=== PATIENT | female | born 1995 | race Caucasian/White ===

== ENCOUNTER 2019-10-09 00:27 | Emergency (ER) | payer SELFPAY ==
[~2019-10-09] VITALS: Ht 162.6 cm; Wt 45.6 kg
[~2019-10-09 00:27] MED LIST: HYDR1CAP2 PO; HYDR1TAB PO
[2019-10-09] MEDS ORDERED: LACTATED RINGERS 1,000 ML IV ONE (00:40)
[2019-10-09] MEDS ORDERED: FAMOTIDINE 20MG/2ML IV (PEPCID) IVP ONE (00:45)
[2019-10-09] MEDS ORDERED: HYOSCYAMINE 0.125 MG (LEVSIN) TAB PO ONE (00:45)
[2019-10-09] MEDS ORDERED: ONDANSETRON 4 MG/2 ML (SDV) Z0FRAN IVP ONE (00:45)
--- NOTE | 2019-10-09 00:47 | ED Abdominal Pain ---
General Chief Complaint: Abdominal/GI Problems Stated Complaint: VOMITING Source of Information: Patient, Family (mom) Exam Limitations: No Limitations History of Present Illness Date Seen by Provider: Oct 09, 2019 Time Seen by Provider: 00:32 Initial Comments Patient presents to ER by private conveyance with chief complaint that today she started expressing nausea vomiting and diarrhea. She took Zofran about an hour prior to arrival with no benefit. She took some Phenergan and is still having some nausea with vomiting. She's not having any blood in her stools. She has a history of chronic constipation alternating with diarrhea and is on Linzess from Dr. Padgett. 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 She's not having any chest pain today. She is having some sharp intermittent abdominal pain when she vomits but it goes away and she is not having any discomfort at the time. She's had no abdominal surgeries. She's not on control. She has not taken any antidiarrheals. Allergies and Home Medications Allergies Coded Allergies: No Known Drug Allergies (Unverified , 08/15/11) Home Medications Hydrocodone Bit/Acetaminophen 1 Each Tablet, 1-2 EACH PO Q4HR PRN Prescribed by: SURI GRIFFITH on 08/15/112006 Patient Home Medication List Home Medication List Reviewed: Yes Review of Systems Review of Systems Constitutional: No chills, No diaphoresis EENTM: No Blurred Vision, No Double Vision Respiratory: Denies Cough, Denies Shortness of Air Cardiovascular: Denies Chest Pain; Lightheadedness, Syncope (near-) Gastrointestinal: Denies Abdominal Pain; Constipated (chronic), Diarrhea (acute), Nausea, Poor Appetite, Poor Fluid Intake, Vomiting Genitourinary: Denies Burning, Denies Discharge Musculoskeletal: No back pain, No joint pain Skin: No pruritus, No rash Psychiatric/Neurological: Denies Headache, Denies Numbness, Denies Paresthesia All Other Systems Reviewed Negative Unless Noted: Yes Past Zebptjf-Skwriu-Ohfzql Hx Patient Social History Alcohol Use: Denies Use Recreational Drug Use: No Smoking Status: Never a Smoker Recent Foreign Travel: No Contact w/Someone Who Travel: No Immunizations Up To Date Tetanus Booster (TDap): Less than 5yrs PED Vaccines UTD: Yes Seasonal Allergies Seasonal Allergies: No Past Medical History Adenoidectomy, Orthopedic Reproductive Disorders: No Sexually Transmitted Disease: No Family Medical History No Pertinent Family Hx Physical Exam Vital Signs Vital Signs - First Documented 10/09/19 00:40 Temp 36.2 Pulse 100 Resp 16 B/P (MAP) 107/62 (77) Pulse Ox 100 O2 Delivery Room Air Capillary Refill : Height/Weight/BMI Height: 5'4" Weight: 98lbs. oz. 44.363015ew; BMI Method:Stated General Appearance: mild distress, thin HEENT: PERRL/EOMI, TMs normal, pharynx normal Neck: full range of motion, normal inspection Respiratory: lungs clear, normal breath sounds, no respiratory distress, no accessory muscle use Cardiovascular: normal peripheral pulses, regular rate, rhythm, no edema Peripheral Pulses: 2+ Dorsalis Pedis (R), 2+ Left Dors-Pedis (L), 2+ Radial Pulses (R), 2+ Radial Pulses (L) Gastrointestinal: normal bowel sounds, non tender, soft, no organomegaly, other (negative for McBurney's point tenderness, rebound tenderness, Rovsing sign, psoas sign, mesenteric signs or Plascencia's sign.) Extremities: normal range of motion, non-tender, normal capillary refill Neurologic/Psychiatric: alert, normal mood/affect, oriented x 3 Skin: normal color, warm/dry Progress/Results/Core Measures Results/Orders Lab Results Laboratory Tests Test 10/09/19 00:40 10/09/19 00:56 Range/Units Urine Color YELLOW Urine Clarity SLT CLOUDY Urine pH 5.5 5-9 Urine Specific [place] >=1.030 1.016-1.022 Urine Protein NEGATIVE NEGATIVE Urine Glucose (UA) NEGATIVE NEGATIVE Urine Ketones 3+ H NEGATIVE Urine Nitrite NEGATIVE NEGATIVE Urine Bilirubin 1+ H NEGATIVE Urine Urobilinogen 0.2 < = 1.0 MG/DL Urine Leukocyte Esterase NEGATIVE NEGATIVE Urine RBC (Auto) NEGATIVE NEGATIVE Urine RBC NONE /HPF Urine WBC 2-5 /HPF Urine Squamous Epithelial Cells 0-2 /HPF Urine Crystals NONE /LPF Urine Bacteria TRACE /HPF Urine Casts NONE /LPF Urine Mucus MODERATE H /LPF Urine Culture Indicated NO White Blood Count 12.2 H 4.3-11.0 10^3/uL Red Blood Count 4.16 L 4.35-5.85 10^6/uL Hemoglobin 12.3 11.5-16.0 G/DL Hematocrit 38 35-52 % Mean Corpuscular Volume 92 80-99 FL Mean Corpuscular Hemoglobin 30 25-34 PG Mean Corpuscular Hemoglobin Concent 32 32-36 G/DL Red Cell Distribution Width 13.8 10.0-14.5 % Platelet Count 168 130-400 10^3/uL Mean Platelet Volume 11.2 H 7.4-10.4 FL Neutrophils (%) (Auto) 89 H 42-75 % Lymphocytes (%) (Auto) 5 L 12-44 % Monocytes (%) (Auto) 6 0-12 % Eosinophils (%) (Auto) 0 0-10 % Basophils (%) (Auto) 0 0-10 % Neutrophils # (Auto) 10.8 H 1.8-7.8 X 10^3 Lymphocytes # (Auto) 0.6 L 1.0-4.0 X 10^3 Monocytes # (Auto) 0.7 0.0-1.0 X 10^3 Eosinophils # (Auto) 0.0 0.0-0.3 10^3/uL Basophils # (Auto) 0.0 0.0-0.1 10^3/uL Neutrophils % (Manual) 88 % Lymphocytes % (Manual) 5 % Monocytes % (Manual) 4 % Eosinophils % (Manual) 1 % Basophils % (Manual) 0 % Band Neutrophils 2 % Sodium Level 138 135-145 MMOL/L Potassium Level 3.7 3.6-5.0 MMOL/L Chloride Level 104 98-107 MMOL/L Carbon Dioxide Level 20 L 21-32 MMOL/L Anion Gap 14 5-14 MMOL/L Blood Urea Nitrogen 17 7-18 MG/DL Creatinine 0.51 L 0.60-1.30 MG/DL Estimat Glomerular Filtration Rate > 60 BUN/Creatinine Ratio 33 Glucose Level 109 H 70-105 MG/DL Calcium Level 8.7 8.5-10.1 MG/DL Corrected Calcium 8.3 L 8.5-10.1 MG/DL Total Bilirubin 1.3 H 0.1-1.0 MG/DL Aspartate Amino Transf (AST/SGOT) 14 5-34 U/L Alanine Aminotransferase (ALT/SGPT) 10 0-55 U/L Alkaline Phosphatase 63 40-136 U/L C-Reactive Protein 0.03 <0.50 MG/DL Total Protein 7.0 6.4-8.2 GM/DL Albumin 4.5 3.2-4.5 GM/DL Lipase 24 8-78 U/L My Orders Orders - MALICK HENDERSON Ua Culture If Indicated (10/09/19 00:28) Urine Bedside (10/09/19 00:28) Ed Iv/Invasive Line Start (10/09/19 00:40) Lactated Ringers (Lr 1000 Ml Iv Solution (10/09/19 00:40) Ondansetron Injection (Zofran Injectio (10/09/19 00:45) Famotidine Injection (Pepcid Injection) (10/09/19 00:45) Cbc With Automated Diff (10/09/19 00:40) Comprehensive Metabolic Panel (10/09/19 00:40) Crp Fs (10/09/19 00:40) Lipase (10/09/19 00:40) Hyoscyamine Sl Tablet (Levsin Sl Tablet) (10/09/19 00:45) Orthostatic Vital Signs (Adult (10/09/19 00:53) Manual Differential (10/09/19 00:56) Medications Given in ED Current Medications Medications Dose Ordered Sig/Ashok Route Start Time Stop Time Status Last Admin Dose Admin Famotidine 20 mg ONCE ONCE IVP 10/09/19 00:45 10/09/19 00:46 DC 10/09/19 00:59 20 MG Hyoscyamine Sulfate 0.125 mg ONCE ONCE PO 10/09/19 00:45 10/09/19 00:46 DC 10/09/19 00:59 0.125 MG Lactated Ringer's 1,000 ml @ 0 mls/hr Q0M ONCE IV 10/09/19 00:40 10/09/19 00:42 DC 10/09/19 00:59 999 MLS/HR Ondansetron HCl 8 mg ONCE ONCE IVP 10/09/19 00:45 10/09/19 00:46 DC 10/09/19 00:59 8 MG Vital Signs/I&O 10/09/19 10/09/19 00:40 01:00 Temp 36.2 Pulse 100 98 95 102 Resp 16 B/P (MAP) 107/62 (77) 103/57 (72) 95/54 (68) 98/49 (65) Pulse Ox 100 O2 Delivery Room Air Progress Progress Note #1: Time: 00:48 Progress Note We'll try some hyoscyamine, Zofran 8 mg IV, Pepcid and check some basic labs urinalysis and bedside test. We'll give her a liter of LR which would be greater than 20 mL/kg. She does not present with septic vital signs but we will check her for orthostasis. 0050: Orthostatics are unremarkable. Progress Note #2: Time: 01:39 Progress Note Patient's having no abdominal pain nausea vomiting. Her vitals are normal. Her fluids or almost done. She has some mild body aches but no fevers or chills. We have offered NSAIDs or she can take ibuprofen when she gets home and she elected the latter. Given her mildly elevated bilirubin and abdominal pain this could be more than IBS or a virus; it could also represent biliary colic. She does not need any further imaging studies tonight. We'll set her up for an outpatient ultrasound of her gallbladder and follow-up with primary care. We've instructed her to hold her Linzess and we'll give her a few tablets of hyoscyamine to get her through this episode. We have given return precautions and she states understanding of the plan. Departure Impression Primary Impression: Gastroenteritis and colitis, viral Additional Impression: Total bilirubin, elevated Disposition: 01 HOME, SELF-CARE Condition: Improved Departure-Patient Inst. Decision time for Depature: 01:41 Referrals: CLARK PADGETT MD (PCP/Family) Primary Care Physician Patient Instructions: Viral Gastroenteritis, Adult (DC) Add. Discharge Instructions: Your nausea vomiting and diarrhea may be from a virus which will last a few days at the most and resolve on its own. It may also be from irritable bowel syndrome. Lastly a could be from your gallbladder misbehaving. I would advise you to stop taking the Linzess until your diarrhea stops. Follow-up with Dr. Padgett if your symptoms persist for more than 3 days or you're having difficulty keeping fluids down faster than you're losing them. Zofran 4-8 mg every 6 hours as needed for nausea and vomiting. Phenergan 25 mg every 6 hours as needed for nausea and vomiting. Hyoscyamine 0.125 mg tablet under the tongue every 6 hours as needed for watery diarrhea. Push plenty of fluids. Half-strength sports drinks such as Gatorade or Powerade mixed 50-50 with water would be recommended. Stick to a bland diet of foods such as bananas, rice, applesauce and toast until your diarrhea is under better control. Simethicone can be used for bloating or gas pain. This morning during business hours you may call registration/scheduling to set up an ultrasound of the gallbladder. Plan to review the results with your primary care doctor by making an appointment with Dr. Padgett. Return to the ER if you develop fever especially above 102.5, intractable abdom inal pain, nausea or vomiting. All discharge instructions reviewed with patient and/or family. Voiced understanding. Scripts Promethazine HCl (Promethazine Tablet) 25 Mg Tablet 25 MG PO Q6H PRN for NAUSEA/VOMITING, #12 TAB 0 Refills Prov: MALICK HENDERSON 10/09/19 Ondansetron (Ondansetron Odt) 4 Mg Tab.rapdis 4-8 MG PO Q6H PRN for NAUSEA/VOMITING, #20 TAB 0 Refills Prov: MALICK HENDERSON 10/09/19 Hyoscyamine Sulfate (Hyoscyamine Sulfate) 0.125 Mg Tab.subl 0.125 MG SL Q6H PRN for DIARRHEA for 3 Days, #12 TAB 0 Refills Prov: MALICK HENDERSON 10/09/19 Work/School Note: Work Release Form Date Seen in the Emergency Department: Oct 09, 2019 Return to Work: Oct 11, 2019 Restrictions: No Restrictions Copy Copies To 1: CLARK PADGETT MD, TITUS J Oct 09, 2019 00:47
[2019-10-09 00:57] LABS: BILIRUBIN,URINE 1+ (NEGATIVE); CLARITY,URINE SLT CLOUDY; COLOR,URINE YELLOW; GLUCOSE, URINE (UA) NEGATIVE (NEGATIVE); KETONES,URINE 3+ (NEGATIVE); NITRITE,URINE NEGATIVE (NEGATIVE); PH,URINE 5.5 (5-9); PROTEIN,URINE NEGATIVE (NEGATIVE)
[2019-10-09 00:58] LABS: BACTERIA,URINE TRACE /HPF; LEUKOCYTE ESTERASE ,URINE NEGATIVE (NEGATIVE); SQUAMOUS EPITHELIAL CELL,UR 0-2 /HPF
[2019-10-09 01:00] VITALS: BP_SYST 103; BP_SYST 95; BP_SYST 98; BP_DIAS 49; BP_DIAS 54; BP_DIAS 57
[2019-10-09 01:04] LABS: HEMATOCRIT 38 % (35-52); HEMOGLOBIN 12.3 G/DL (11.5-16.0); MEAN CORPUSCULAR HEMOGLOBIN 30 PG (25-34); MEAN CORPUSCULAR HGB CONC 32 G/DL (32-36); MEAN CORPUSCULAR VOLUME 92 FL (80-99); MEAN PLATELET VOLUME 11.2 FL (7.4-10.4); PLATELET COUNT 168 10^3/uL (130-400); RED CELL DISTRIBUTION WIDTH 13.8 % (10.0-14.5); WHITE BLOOD COUNT 12.2 10^3/uL (4.3-11.0)
[2019-10-09 01:05] LABS: BASOPHILS % (AUTO) 0 % (0-10); EOSINOPHILS % (AUTO) 0 % (0-10); LYMPHOCYTES # (AUTO) 0.6 X 10^3 (1.0-4.0); LYMPHOCYTES % (AUTO) 5 % (12-44); MONOCYTES # (AUTO) 0.7 X 10^3 (0.0-1.0); MONOCYTES % (AUTO) 6 % (0-12); NEUTROPHILS # (AUTO) 10.8 X 10^3 (1.8-7.8); NEUTROPHILS % (AUTO) 89 % (42-75)
[2019-10-09 01:16] LABS: BAND NEUTROPHILS 2 %; BASOPHILS % (MANUAL) 0 %; EOSINOPHILS % (MANUAL) 1 %; LYMPHOCYTES % (MANUAL) 5 %; MONOCYTES % (MANUAL) 4 %; NEUTROPHILS % (MANUAL) 88 %
[2019-10-09 01:22] LABS: CHLORIDE 104 MMOL/L (98-107); POTASSIUM 3.7 MMOL/L (3.6-5.0); SODIUM 138 MMOL/L (135-145)
[2019-10-09 01:23] LABS: ALANINE AMINOTRANSFERASE 10 U/L (0-55); ALBUMIN 4.5 GM/DL (3.2-4.5); ALKALINE PHOSPHATASE 63 U/L (40-136); BILIRUBIN,TOTAL 1.3 MG/DL (0.1-1.0); BUN/CREATININE RATIO 33; CALCIUM 8.7 MG/DL (8.5-10.1); CARBON DIOXIDE 20 MMOL/L (21-32); CREATININE SERUM 0.51 MG/DL (0.60-1.30); GFR ESTIMATED > 60; GLUCOSE 109 MG/DL (70-105); LIPASE 24 U/L (8-78)
[2019-10-09] MEDS ORDERED: RX-HYOSCYAMINE 0.125 MG SL (LEVSIN) PPK#6 SL STA (01:38)
[2019-10-09] MEDS ORDERED: RX-ONDANSETRON 4 MG ODT (ZOFRAN) PPK #4 PO STA (01:38)
[2019-10-09] MEDS ORDERED: PROM25TA14 PO (01:44)
[2019-10-09] MEDS ORDERED: ONDA4TAB11 PO (01:44)
[2019-10-09] MEDS ORDERED: HYOS-19 SL (01:44)
[2019-10-09 01:53] VITALS: BP 95/51
== END 2019-10-09 01:53 | disposition home or self-care (01) ==
LOC: EDUNIT# 00:27 → ER FS 00:29
DX: A08.4 Viral intestinal infection, unspecified (principal); R17 Unspecified jaundice
CPT/HCPCS: 36415; 80053; 81000; 83690; 84703; 85007; 85027; 86141

== ENCOUNTER 2020-02-12 08:23 | Outpatient (RCR) | payer SELFPAY ==
[~2020-02-12 08:23] MED LIST changes: +HYOS-19 SL; +ONDA4TAB11 PO; +PROM25TA14 PO
== END 2020-05-09 | disposition home or self-care (01) ==
LOC: PREOP 08:23
PROVIDERS: ATTEND Surgery
DX: Z01.818 Encounter for other preprocedural examination (principal)

== ENCOUNTER 2020-02-29 02:35 | Emergency (ER) | payer SELFPAY ==
[~2020-02-29] VITALS: Ht 162.6 cm; Wt 45.5 kg
[2020-02-29 02:44] VITALS: BP 117/76
--- NOTE | 2020-02-29 02:54 | ED Chest Pain ---
General Chief Complaint: Abdominal/GI Problems Stated Complaint: CHEST PAIN Source: patient Exam Limitations: no limitations History of Present Illness Date Seen by Provider: February 29, 2020 Time Seen by Provider: 02:47 Initial Comments Patient is a 24-year-old female with 4-5 days of discomfort in her chest. She says been constant she has a sensation of feeling like she needs to breathe deeply but sometimes makes her more aware of the discomfort that radiates there is no nausea no vomiting there is no coughing or sore trauma travel leg swelling Timing/Duration: 4-5 days Severity/Quality: mild Location: substernal Radiation: no radiation Activities at Onset: none Prior CP/Workup: no prior chest pain ASA po MANAGER ASSESSMENT: No NTG SL MANAGER ASSESSMENT: No Associated Symptoms: denies symptoms Allergies and Home Medications Allergies Coded Allergies: No Known Drug Allergies (Unverified , 08/15/11) Home Medications Hydrocodone Bit/Acetaminophen 1 Each Tablet, 1-2 EACH PO Q4HR PRN Prescribed by: SURI GRIFFITH on 08/15/112006 Hyoscyamine Sulfate 0.125 Mg Tab.subl, 0.125 MG SL Q6H PRN for DIARRHEA Prescribed by: MALICK HENDERSON on 10/09/19143 Ondansetron 4 Mg Tab.rapdis, 4-8 MG PO Q6H PRN for NAUSEA/VOMITING Prescribed by: MALICK HENDERSON on 10/09/19143 Promethazine HCl 25 Mg Tablet, 25 MG PO Q6H PRN for NAUSEA/VOMITING Prescribed by: MALICK HENDERSON on 10/09/19143 Patient Home Medication List Home Medication List Reviewed: Yes Review of Systems Review of Systems Constitutional: no symptoms reported EENTM: No Symptoms Reported Respiratory: No Symptoms Reported Cardiovascular: See HPI Gastrointestinal: No Symptoms Reported Genitourinary: No Symptoms Reported Musculoskeletal: no symptoms reported Skin: no symptoms reported Psychiatric/Neurological: No Symptoms Reported Past Qlzripa-Oqxgrs-Vogifs Hx Past Med/Social Hx: Reviewed Nursing Past Med/Soc Hx Patient Social History Alcohol Use: Denies Use Recreational Drug Use: No Smoking Status: Never a Smoker 2nd Hand Smoke Exposure: No Recent Foreign Travel: No Contact w/Someone Who Travel: No Recent Hopitalizations: No Physical Abuse: No Sexual Abuse: No Mistreated: No Fear: No Immunizations Up To Date Tetanus Booster (TDap): Less than 5yrs PED Vaccines UTD: Yes Seasonal Allergies Seasonal Allergies: No Past Medical History Surgeries: Yes (DENTAL. "LUMPS OUT OF ARMPIT") Adenoidectomy, Open Heart Surgery, Orthopedic Respiratory: No Cardiac: No Neurological: Yes (SYNCOPE) Reproductive Disorders: No Sexually Transmitted Disease: No Genitourinary: No Gastrointestinal: No Musculoskeletal: No Endocrine: No HEENT: No Cancer: No Psychosocial: No Integumentary: No Blood Disorders: No Family Medical History No Pertinent Family Hx Physical Exam Vital Signs Vital Signs - First Documented 02/29/20 02:44 Temp 36.9 Pulse 72 Resp 18 B/P (MAP) 117/76 (90) Pulse Ox 100 O2 Delivery Room Air Capillary Refill : Height, Weight, BMI Height: 5'4" Weight: 98lbs. oz. 44.418289uh; 17.00 BMI Method:Stated General Appearance: No Apparent Distress, WD/WN, Other (comfortably supine taxing on following the room) HEENT: PERRL/EOMI, TMs Normal Neck: Full Range of Motion, Normal Inspection, Non Tender Respiratory: Chest Non Tender, Lungs Clear, Normal Breath Sounds, No Accessory Muscle Use Cardiovascular: Regular Rate, Rhythm, No Edema, No Gallop Gastrointestinal: Normal Bowel Sounds, No Organomegaly, Non Tender Extremity: Normal Capillary Refill, Normal Inspection, Normal Range of Motion, Non Tender Neurologic/Psychiatric: Alert, Oriented x3, No Motor/Sensory Deficits, Normal Mood/Affect Skin: Normal Color, Warm/Dry Lymphatic: No Adenopathy Progress/Results/Core Measures Results/Orders My Orders Orders - GURDEEP MIGUEL DO Chest 1 View Ap/Pa Only (02/29/20 02:57) Vital Signs/I&O 02/29/20 02:44 Temp 36.9 Pulse 72 Resp 18 B/P (MAP) 117/76 (90) Pulse Ox 100 O2 Delivery Room Air Progress Progress Note : Progress Note This is a 24-year-old with 5 days of chest pain that is atypical a normal physical exam plan will be risk stratification for her perk score is 0 EKG was normal. Differential would include pneumothorax historically the symptoms sound unlikely to be reflux or hiatal hernia anxiety disorder is possible. The plan will be a chest x-ray is a normal physical exam stratifies low normal EKG after 5 days of chest pain than her baseline right bundle branch block which is known discharge home for primary care follow-up Initial ECG Impression Date: February 29, 2020 Initial ECG Impression Time: 02:47 Initial ECG Rate: 60 Initial ECG Rhythm: Normal Sinus Initial ECG Intervals Right bundle branch block Initial ECG Impression: Normal (no acute ST segment abnormality) Departure Impression Primary Impression: Atypical chest pain Disposition: 01 HOME, SELF-CARE Condition: Unchanged Departure-Patient Inst. Referrals: CLARK PADGETT MD (PCP/Family) Primary Care Physician 1-2 days if continues Patient Instructions: Chest Pain That Is Not Caused by the Heart (DC) GURDEEP MIGUEL DO February 29, 2020 02:54
--- NOTE | 2020-02-29 07:19 | Diagnostic Imaging Report ---
INDICATION: Chest pain x2-3 days increasing severity.. TECHNIQUE: Single view chest 3:04 AM. CORRELATION STUDY: 04/07/2015 FINDINGS: The heart size, mediastinal configuration and pulmonary vascularity are within normal limits. The lungs are clear with no consolidating infiltrate. There is no significant effusion or pneumothorax. IMPRESSION: 1. Negative for acute abnormality of the chest. Dictated by: Dictated on workstation # [id number]
== END 2020-02-29 03:16 | disposition home or self-care (01) ==
LOC: EDUNIT# 02:35 → ER FS 02:38
DX: R07.89 Other chest pain (principal)
CPT/HCPCS: 71045; 93005

== ENCOUNTER 2021-10-04 22:36 | Emergency (ER) | payer OTHER ==
--- NOTE | 2021-10-04 22:53 | ED Headache ---
General Chief Complaint: Head/Cervical Problems Stated Complaint: HEADACHE,NAUSEA Nursing Triage Note: Pt complaining of a headache that started yesteday Source: patient Exam Limitations: no limitations History of Present Illness Date Seen by Provider: Oct 04, 2021 Time Seen by Provider: 22:41 Initial Comments 26-year-old female with past medical history of migraines coming in due to what feels like a migraine to her. The pain is in the front of her head, throbbing, constant, and nothing seems to really make it better. This headache started yesterday morning. She says she gets one at least every other day and has for many years. She says she is to go to the ER all the time for this and has had multiple work-ups including multiple images of her head. She is currently on Topamax daily for this and then takes Excedrin Migraine as needed. She last had this around 4 to 6 hours ago. Normally the Excedrin well make her headaches go away, but when they get to this point she typically has to come to the ER. Denies any fever, vision changes, hearing changes, weakness, numbness, chest pain, shortness of breath, nausea, vomiting, diarrhea, dysuria, or any other concerns. She is on control and is currently menstruating. Of note, she says within the past couple days she has been COVID and flu tested and were both negative. Allergies and Home Medications Allergies Coded Allergies: No Known Drug Allergies (Unverified , 08/15/11) Patient Home Medication List Home Medication List Reviewed: Yes Hydrocodone Bit/Acetaminophen (Hydrocet 5-500 Capsule) 1 Each Capsule, 1 EACH PO, (Reported) Entered as Reported by: ZANE DICKEY on 08/15/111938 Hydrocodone Bit/Acetaminophen (Vicodin 5-500 Tablet) 1 Each Tablet, 1-2 EACH PO Q4HR PRN Prescribed by: SURI GRIFFITH on 08/15/112006 Hyoscyamine Sulfate (Hyoscyamine Sulfate) 0.125 Mg Tab.subl, 0.125 MG SL Q6H PRN for DIARRHEA Prescribed by: MALICK HENDERSON on 10/09/19143 Ondansetron (Ondansetron Odt) 4 Mg Tab.rapdis, 4-8 MG PO Q6H PRN for NAUSEA/VOMITING Prescribed by: MALICK HENDERSON on 10/09/19143 Promethazine HCl (Promethazine Tablet) 25 Mg Tablet, 25 MG PO Q6H PRN for NAUSEA/VOMITING Prescribed by: MALICK HENDERSON on 10/09/19143 Review of Systems Review of Systems Constitutional: No chills, No fever Eyes: Denies Blurred Vision, Denies Photophobia Ears, Nose, Mouth, Throat: denies nose discharge Respiratory: No cough, No short of breath Cardiovascular: No chest pain Gastrointestinal: No abdominal pain, No diarrhea, No nausea, No vomiting Genitourinary: no symptoms reported Musculoskeletal: no symptoms reported Skin: no symptoms reported Psychiatric/Neurological: Headache All Other Systems Reviewed Negative Unless Noted: Yes Past Yaefvlg-Ediueh-Uxbdwv Hx Patient Social History Tobacco Use?: No Use of E-Cig and/or Vaping dev: Yes Substance use?: No Alcohol Use?: No Immunizations Up To Date Tetanus Booster (TDap): Less than 5yrs PED Vaccines UTD: Yes Seasonal Allergies Seasonal Allergies: No Past Medical History Surgeries: Yes (DENTAL. "LUMPS OUT OF ARMPIT") Adenoidectomy, Open Heart Surgery, Orthopedic Respiratory: No Cardiac: No Neurological: Yes (SYNCOPE) Reproductive Disorders: No Sexually Transmitted Disease: No Genitourinary: No Gastrointestinal: No Musculoskeletal: No Endocrine: No HEENT: No Cancer: No Psychosocial: No Integumentary: No Blood Disorders: No Family Medical History No Pertinent Family Hx Physical Exam Vital Signs Vital Signs - First Documented 10/04/21 22:39 Temp 36.5 Pulse 70 Resp 16 B/P (MAP) 123/87 (99) Pulse Ox 100 O2 Delivery Room Air Capillary Refill : Less Than 3 Seconds Height, Weight, BMI Height: 5'4" Weight: 98lbs. oz. 44.476885at; 17.00 BMI Method:Stated General Appearance: WD/WN, no apparent distress HEENT: PERRL/EOMI, normal ENT inspection, TMs normal, pharynx normal Neck: non-tender, full range of motion, supple, normal inspection Cardiovascular: regular rate, rhythm, no edema, no murmur Respiratory: chest non-tender, lungs clear, normal breath sounds, no respiratory distress, no accessory muscle use Gastrointestinal: normal bowel sounds, non tender, soft; No distended, No guarding, No rebound Back: normal inspection, no CVA tenderness Extremities: normal range of motion, non-tender, normal inspection, no pedal edema, no calf tenderness, normal capillary refill Psychiatric: alert, oriented x 3 Crainal Nerves: normal hearing, normal speech, PERRL Coordination/Gait: normal gait Motor/Sensory: no motor deficit, no sensory deficit Skin: normal color, warm/dry Lymphatic: no adenopathy Progress/Results/Core Measures Results/Orders My Orders Orders - CARROLL GARCIA MD Diphenhydramine Injection (Benadryl Inje (10/04/21 23:00) Ketorolac Injection (Toradol Injection) (10/04/21 23:00) Prochlorperazine Injection (Compazine In (10/04/21 23:00) Dexamethasone Oral Soln (Ed) (Decadron I (10/04/21 22:46) Vital Signs/I&O 10/04/21 22:39 Temp 36.5 Pulse 70 Resp 16 B/P (MAP) 123/87 (99) Pulse Ox 100 O2 Delivery Room Air Blood Pressure Mean: 99 Progress Progress Note : Progress Note 26-year-old female with above history coming in due to headache. The patient says she gets a headache every other day and has for many years, and this feels like one of her bad ones that she would normally get. She says she has had multiple work-ups in the past and they are always normal. Typically when this happens, she says she just gets a shot in her muscle and she gets better. ABCs were intact, vital stable on presentation, GCS 15. Complete neuro exam is normal. She was given IM Compazine, Benadryl, Toradol. She says in the past she thinks steroids have helped, but that she prefer them oral. So she was given oral Decadron. On reassessment her headache had improved. I believe she is stable for discharge with outpatient follow-up. She was sent home with st rict return precautions. Departure Impression Primary Impression: Headache Qualified Codes: R51.9 - Headache, unspecified; G89.29 - Other chronic pain Disposition: HOME, SELF-CARE Condition: Stable Departure-Patient Inst. Decision time for Depature: 23:30 Referrals: ALE SMITH APRN (PCP/Family) Primary Care Physician Patient Instructions: Headache, Adult (DC) Add. Discharge Instructions: You were seen in the emergency department for your headache. I think at this point if this has been going on for years she should follow-up with a neurologist to see if there is something they can do to help minimize how many headaches you are getting every day. There are new medications coming out constantly, and there are some that can really change how any migraines you have per month. Work/School Note: Work Release Form Date Seen in the Emergency Department: Oct 04, 2021 Return to Work: Oct 06, 2021 Restrictions: No Restrictions CARROLL GARCIA MD Oct 04, 2021 22:53
[2021-10-04] MEDS ORDERED: PROCHLORPERAZINE 10 MG/2ML INJ (COMPAZINE) IM ONE (23:00)
[2021-10-04] MEDS ORDERED: diphenhydrAMINE 50 MG/ML INJ (BENADRYL) IM ONE (23:00)
[2021-10-04] MEDS ORDERED: KETOROLAC 30 MG/ML VIAL IM ONE (23:00)
[2021-10-04] MEDS ORDERED: KETOROLAC 30 MG/ML VIAL IVP ONE (23:00)
[2021-10-04 23:22] VITALS: BP 123/87
== END 2021-10-04 23:23 | disposition home or self-care (01) ==
LOC: EDUNIT# 22:36 → ER FS 22:39
DX: R51.9 Headache, unspecified (principal)
CPT/HCPCS: 99284

== ENCOUNTER 2021-10-07 08:13 | Emergency (ER) | payer OTHER ==
[~2021-10-07] VITALS: Ht 162.6 cm; Wt 45.4 kg
[2021-10-07 08:20] VITALS: BP 108/72
--- NOTE | 2021-10-07 09:28 | ED Cough/URI ---
General Chief Complaint: Fever-Adult/Adol Stated Complaint: BODY ACHES,FEVER,SOAR THROAT Nursing Triage Note: Patient reports she has had a headache, subjective fever, cough, and sore throat for 3 days. States she was tested for COVID and the flu 3 days ago at walk-in care and tested negative for both. She reports her symptoms have continued to worsen so she came to the ED today for evaluation. Source: patient Exam Limitations: no limitations History of Present Illness Date Seen by Provider: Oct 07, 2021 Time Seen by Provider: 08:50 Initial Comments Patient is a 26-year-old female with history of cardiomyopathy and septal wall defect repair who presents with 3 days of sore throat body aches, fever chills sweats, nasal congestion rhinorrhea. No nausea vomiting or abdominal pain. Patient tested negative for Covid and influenza on day 1 of symptoms. She states she has not worsened but not improved. She is able to tolerate fluids and eat small meals. She is not dizzy lightheaded, and denies shortness of breath. She is not hypoxic. Patient is taken vqcy-llg-mtloaib cough medications with limited improvement. No other acute symptoms or complaints. Patient is a non-smoker. Timing/Duration: week Severity/Quality: other Prior Episodes/Possible Cause: other Modifying Factors: Improves With Other Associated Symptoms: other Allergies and Home Medications Allergies Coded Allergies: No Known Drug Allergies (Unverified , 08/15/11) Patient Home Medication List Home Medication List Reviewed: Yes Hydrocodone Bit/Acetaminophen (Hydrocet 5-500 Capsule) 1 Each Capsule, 1 EACH PO, (Reported) Entered as Reported by: ZANE DICKEY on 08/15/111938 Hydrocodone Bit/Acetaminophen (Vicodin 5-500 Tablet) 1 Each Tablet, 1-2 EACH PO Q4HR PRN Prescribed by: SURI GRIFFITH on 08/15/112006 Hyoscyamine Sulfate (Hyoscyamine Sulfate) 0.125 Mg Tab.subl, 0.125 MG SL Q6H PRN for DIARRHEA Prescribed by: MALICK HENDERSON on 10/09/19143 Ondansetron (Ondansetron Odt) 4 Mg Tab.rapdis, 4-8 MG PO Q6H PRN for NAUSEA/VOMITING Prescribed by: MALICK HENDERSON on 10/09/19143 Promethazine HCl (Promethazine Tablet) 25 Mg Tablet, 25 MG PO Q6H PRN for NAUSEA/VOMITING Prescribed by: MALICK HENDERSON on 10/09/19 0144 Review of Systems Review of Systems Constitutional: see HPI EENTM: see HPI Respiratory: see HPI Cardiovascular: see HPI Gastrointestinal: see HPI Genitourinary: see HPI Musculoskeletal: see HPI Skin: see HPI Psychiatric/Neurological: See HPI Hematologic/Lymphatic: See HPI Immunological/Allergic: see HPI All Other Systems Reviewed Negative Unless Noted: Yes Past Txpwiza-[place]ld[place] Hx Patient Social History Tobacco Use?: Yes Use of E-Cig and/or Vaping dev: Yes Substance use?: No Alcohol Use?: No Pt feels they are or have been: No Immunizations Up To Date Tetanus Booster (TDap): Less than 5yrs PED Vaccines UTD: Yes Seasonal Allergies Seasonal Allergies: No Past Medical History Surgery/Hospitalization HX: open heart surgery 2014, migraine headaches Surgeries: Yes (DENTAL. "LUMPS OUT OF ARMPIT") Adenoidectomy, Open Heart Surgery, Orthopedic Respiratory: No Cardiac: No Neurological: Yes (SYNCOPE) Reproductive Disorders: No Sexually Transmitted Disease: No Genitourinary: No Gastrointestinal: No Musculoskeletal: No Endocrine: No HEENT: No Cancer: No Psychosocial: No Integumentary: No Blood Disorders: No Family Medical History No Pertinent Family Hx Physical Exam Vital Signs - First Documented 10/07/21 08:20 Temp 36.4 Pulse 88 Resp 16 B/P (MAP) 108/72 (84) Pulse Ox 97 O2 Delivery Room Air Capillary Refill : Less Than 3 Seconds Height: 5'4" Weight: 98lbs. oz. 44.254166sk; 17.00 BMI Method:Stated General Appearance: WD/WN, no apparent distress Eyes: Bilateral Eye Normal Inspection, Bilateral Eye PERRL, Bilateral Eye EOMI HEENT: PERRL/EOMI, normal ENT inspection, TMs normal, pharynx normal, other (Pharyngeal erythema, minimal swelling) Neck: other (Cervical lymphadenopathy) Respiratory: chest non-tender, lungs clear Cardiovascular: normal peripheral pulses, regular rate, rhythm Gastrointestinal: non tender, soft Neurologic/Psychiatric: alert, oriented x 3 Skin: normal color Focused Exam Sepsis Stage: Ruled Out Time of Focused Exam: 09:30 Progress/Results/Core Measures Suspected Sepsis SIRS Temperature: Pulse: 88 Respiratory Rate: 16 Blood Pressure 108 /72 Mean: 84 Results/Orders Lab Results Laboratory Tests Test 10/07/21 08:35 Range/Units Group A Streptococcus Screen NEGATIVE NEGATIVE My Orders Orders - SAGE PARKER DO Covid 19 Inhouse Test (10/07/21 08:36) Rapid Strep A Screen (10/07/21 08:36) Isolation Central Supply Req (10/07/21 08:36) Influenza A & B Antigens (10/07/21 09:19) Vital Signs/I&O 10/07/21 08:20 Temp 36.4 Pulse 88 Resp 16 B/P (MAP) 108/72 (84) Pulse Ox 97 O2 Delivery Room Air Capillary Refill : Less Than 3 Seconds Blood Pressure Mean: 84 Departure Communication (Admissions) Pharyngitis with concern for possible Covid-like illness. No respiratory compromise Will obtain Covid/strep and influenza tests and treat accordingly. Impression Primary Impression: Pharyngitis Additional Impression: Viral syndrome Disposition: 01 HOME, SELF-CARE Condition: Stable Departure-Patient Inst. Decision time for Depature: 09:31 Referrals: ALE SMITH APRN (PCP/Family) Primary Care Physician Patient Instructions: Viral Pharyngitis (DC) Add. Discharge Instructions: You were evaluated in the emergency department for body aches, nasal congestion, cough, and sore throat. Covid and influenza test were obtained and results are pending. Please continue ibuprofen for body aches and ngrr-vxm-nlglnky decongestants, and continue to self quarantine. Additional treatments may be recommended as test results become known. Follow-up with PCP in 3 to 5 days for reevaluation if symptoms persist. All discharge instructions reviewed with patient and/or family. Voiced understanding. SAGE PARKER DO Oct 07, 2021 09:28
[2021-10-07] MEDS ORDERED: PRD20T PO (17:17)
[2021-10-07] MEDS ORDERED: AZIT250T PO (17:17)
[2021-10-07] MEDS ORDERED: RT-ALBUINH INH (17:17)
[2021-10-12] MEDS ORDERED: BENZ100C18 PO (15:35)
== END 2021-10-07 09:40 | disposition home or self-care (01) ==
LOC: EDUNIT# 08:13 → ER FS 08:15
DX: U07.1 COVID-19 (principal); J02.9 Acute pharyngitis, unspecified; Z72.0 Tobacco use
CPT/HCPCS: 87430; 87636; 87804; 99283

== ENCOUNTER 2021-10-11 20:12 | Emergency (ER) | payer OTHER ==
[~2021-10-11] VITALS: Ht 162 cm; Wt 44.4 kg
[~2021-10-11 20:12] MED LIST changes: +AZIT250T PO; +PRD20T PO; +RT-ALBUINH INH
--- NOTE | 2021-10-11 21:56 | ED General ---
General Chief Complaint: COVID19 Suspect/Confirmed Stated Complaint: FACIAL SWELLING,CONGESTION Nursing Triage Note: Pt is c/o sore throat, congestion and HOUSER starting this am. Pt tested COVID+ on Sunday. Has not taken Tylenol or Motrin. Denies fever, cough, SOA, or CP. Hx of migranes. Source of Information: Patient Exam Limitations: No Limitations History of Present Illness Date Seen by Provider: Oct 11, 2021 Time Seen by Provider: 20:55 Initial Comments This 26-year-old young lady presents to the emergency room with symptoms related to COVID-19 infection. She was diagnosed 5 days ago and was prescribed prednisone and azithromycin. She initially felt better but today her symptoms seem to be worse. She complains of sore throat and discomfort on the right side of her neck and face. She has been feverish and generally feels ill. She also complains of cough that disrupts her sleep. She is concerned that her symptoms have worsened and would like evaluated. Allergies and Home Medications Allergies Coded Allergies: No Known Drug Allergies (Unverified , 08/15/11) Patient Home Medication List Home Medication List Reviewed: Yes Albuterol Sulfate (Proventil Hfa) 6.7 Gm Hfa.aer.ad, 2 PUFF INH Q6H Prescribed by: SAGE PARKER on 10/07/211716 Azithromycin (Zithromax) 250 Mg Tablet, 250 MG PO UD Prescribed by: SAGE PARKER on 10/07/211716 Hydrocodone Bit/Acetaminophen (Hydrocet 5-500 Capsule) 1 Each Capsule, 1 EACH PO, (Reported) Entered as Reported by: ZANE DICKEY on 08/15/111938 Hydrocodone Bit/Acetaminophen (Vicodin 5-500 Tablet) 1 Each Tablet, 1-2 EACH PO Q4HR PRN Prescribed by: SURI GRIFFITH on 08/15/112006 Hyoscyamine Sulfate (Hyoscyamine Sulfate) 0.125 Mg Tab.subl, 0.125 MG SL Q6H PRN for DIARRHEA Prescribed by: MALICK HENDERSON on 10/09/19143 Ondansetron (Ondansetron Odt) 4 Mg Tab.rapdis, 4-8 MG PO Q6H PRN for NAUSEA/VOMITING Prescribed by: MALICK HENDERSON on 10/09/19143 Prednisone (Prednisone) 20 Mg Tab, 40 MG PO DAILY Prescribed by: SAGE PARKER on 10/07/21 1717 Promethazine HCl (Promethazine Tablet) 25 Mg Tablet, 25 MG PO Q6H PRN for NAUSEA/VOMITING Prescribed by: MALICK HENDERSON on 10/09/19 0144 Review of Systems Review of Systems Constitutional: see HPI EENTM: see HPI Respiratory: see HPI Cardiovascular: no symptoms reported Gastrointestinal: no symptoms reported Genitourinary: no symptoms reported Musculoskeletal: muscle pain Skin: no symptoms reported Psychiatric/Neurological: No Symptoms Reported Hematologic/Lymphatic: No Symptoms Reported Immunological/Allergic: no symptoms reported Past Acustxr-Sbvvrq-Jfruin Hx Patient Social History Tobacco Use?: No Use of E-Cig and/or Vaping dev: Yes E-Cig or Vaping type used: Nicotine Use of E-Cig and/or Vaping Fadi: Current Everyday User Substance use?: No Alcohol Use?: No Pt feels they are or have been: No Immunizations Up To Date Tetanus Booster (TDap): Less than 5yrs PED Vaccines UTD: Yes Influenza Vaccine Up-to-Date: No; Not Current First/Initial COVID19 Vaccinat: denies Seasonal Allergies Seasonal Allergies: No Past Medical History Surgery/Hospitalization HX: open heart surgery 2014, migraine headaches Surgeries: Yes (DENTAL. "LUMPS OUT OF ARMPIT") Adenoidectomy, Open Heart Surgery, Orthopedic Respiratory: No Cardiac: No Neurological: Yes (SYNCOPE) Last Menstrual Period: Oct 01, 2021 Reproductive Disorders: No Sexually Transmitted Disease: No Genitourinary: No Gastrointestinal: No Musculoskeletal: No Endocrine: No HEENT: No Cancer: No Psychosocial: No Integumentary: No Blood Disorders: No Family Medical History No Pertinent Family Hx Physical Exam Vital Signs Vital Signs - First Documented 10/11/21 20:15 Temp 37.6 Pulse 97 Resp 15 B/P (MAP) 107/79 (88) Pulse Ox 97 O2 Delivery Room Air Capillary Refill : Less Than 3 Seconds Height, Weight, BMI Height: 5'4" Weight: 98lbs. oz. 44.083804kx; 16.00 BMI Method:Stated General Appearance: No Apparent Distress, Mild Distress HEENT: PERRL/EOMI, TMs Normal, Normal ENT Inspection, Pharynx Normal, Other (Mild tenderness over the sinuses) Neck: Normal Inspection Respiratory: Lungs Clear, Normal Breath Sounds, No Accessory Muscle Use, No Respiratory Distress Cardiovascular: Regular Rate, Rhythm, No Edema, No Murmur, Normal Peripheral Pulses Gastrointestinal: Normal Bowel Sounds, Non Tender, Soft Extremity: Normal Inspection, No Pedal Edema Neurologic/Psychiatric: Alert, Oriented x3, No Motor/Sensory Deficits, Normal Mood/Affect, magisterial district judge II-XII Norm as Tested Skin: Normal Color, Warm/Dry Progress/Results/Core Measures Suspected Sepsis SIRS Temperature: Pulse: 97 Respiratory Rate: 15 Blood Pressure 107 /79 Mean: 88 Results/Orders Lab Results Laboratory Tests Test 10/11/21 21:00 Range/Units Group A Streptococcus Screen NEGATIVE NEGATIVE My Orders Orders - CHEPE HENDERSON MD Rapid Strep A Screen (10/11/21 21:04) Benzonatate Capsule (Tessalon Perles) (10/11/21 22:00) Medications Given in ED Current Medications Medications Dose Ordered Sig/Ashok Route Start Time Stop Time Status Last Admin Dose Admin Benzonatate 200 mg ONCE ONCE PO 10/11/21 22:00 10/11/21 22:01 DC 10/11/21 22:01 200 MG Vital Signs/I&O 10/11/21 10/11/21 20:15 22:02 Temp 37.6 37.6 Pulse 97 97 Resp 15 15 B/P (MAP) 107/79 (88) 107/79 Pulse Ox 97 97 O2 Delivery Room Air Room Air Capillary Refill : Less Than 3 Seconds Blood Pressure Mean: 88 Progress Note : Progress Note Exam was unremarkable except for mild tenderness over the sinuses. She was advised to take Tylenol and/or ibuprofen for her discomfort. Symptoms are consistent with COVID 19. Her symptoms were likely masked by the steroids which she discontinued yesterday. See discharge instructions for further discussion. Departure Impression Primary Impression: COVID-19 Additional Impression: Pharyngitis Qualified Codes: J02.9 - Acute pharyngitis, unspecified Disposition: HOME, SELF-CARE Condition: Improved Departure-Patient Inst. Decision time for Depature: 21:53 Referrals: ALE SMITH APRN (PCP/Family) Primary Care Physician Patient Instructions: COVID-19 ED Add. Discharge Instructions: You may take ibuprofen up to 400 mg every 6 hours and/or Tylenol (acetaminophen) up to 650 mg every 6 hours as needed for pain. Drink plenty of clear liquids. Remain in quarantine and home from work until 10 days from onset of symptoms since you are having prolonged significant symptoms. Call with questions or concerns. Return to care if you have worsening symptoms All discharge instructions reviewed with patient and/or family. Voiced understanding. Work/School Note: Work Release Form Date Seen in the Emergency Department: Oct 11, 2021 Return to Work: Oct 17, 2021 Restrictions: Return-No Fever (24hrs) CHEPE HENDERSON MD Oct 11, 2021 21:56
[2021-10-11] MEDS ORDERED: BENZONATATE 100 MG (TESSALON) CAPSULE PO ONE (22:00)
[2021-10-11 22:02] VITALS: BP 107/79
[2021-10-12] MEDS ORDERED: BENZ100C18 PO (15:35)
== END 2021-10-11 22:02 | disposition home or self-care (01) ==
LOC: EDUNIT# 20:12 → ER FS 20:14
DX: U07.1 COVID-19 (principal); J02.9 Acute pharyngitis, unspecified; F17.290 Nicotine dependence, other tobacco product, uncomplicated
CPT/HCPCS: 87430; 99283

== ENCOUNTER 2022-04-06 01:55 | Emergency (ER) | payer SELFPAY ==
[~2022-04-06] VITALS: Ht 162.5 cm; Wt 54.8 kg
[~2022-04-06 01:55] MED LIST changes: +BENZ100C18 PO
[2022-04-06 02:01] VITALS: BP 102/69
--- NOTE | 2022-04-06 02:13 | ED Headache ---
General Chief Complaint: Head/Cervical Problems Stated Complaint: MIGRAINE, NAUSEA Nursing Triage Note: Patient states her migraine started yesterday. She has taken Excedrin Migraine with no relief. Patient has a history of migraines. Patient is also reporting slight nausea. Source: patient Exam Limitations: no limitations History of Present Illness Date Seen by Provider: Apr 06, 2022 Time Seen by Provider: 02:00 Initial Comments 26-year-old female known to me coming in due to migraine. She has had migraines for years since had significant work-ups which have all been normal. She has follow-up with a neurologist here in the next 5 months. She takes Topamax daily as well as Excedrin Migraine which she took. This was been going on for roughly 12 hours. It feels similar to her prior migraines. Severe, in front of her head, throbbing, nothing seems to make it better. She denies any fever associated with it, weakness, numbness, vision changes, neck stiffness, chest pain, shortness of breath, abdominal pain, vomiting, diarrhea, body aches, rash, or any other concerns. LMP was last week. Allergies and Home Medications Allergies Coded Allergies: No Known Drug Allergies (Unverified , 08/15/11) Patient Home Medication List Home Medication List Reviewed: Yes Albuterol Sulfate (Proventil Hfa) 6.7 Gm Hfa.aer.ad, 2 PUFF INH Q6H Prescribed by: SAGE PARKER on 10/07/211716 Azithromycin (Zithromax) 250 Mg Tablet, 250 MG PO UD Prescribed by: SAGE PARKER on 10/07/211716 Benzonatate (Tessalon Perles) 100 Mg Capsule, 100 MG PO TID PRN for COUGH Prescribed by: CHLOE PALMER on 10/12/21 153 Hydrocodone Bit/Acetaminophen (Hydrocet 5-500 Capsule) 1 Each Capsule, 1 EACH PO, (Reported) Entered as Reported by: ZANE DICKEY on 08/15/11 193 Hydrocodone Bit/Acetaminophen (Vicodin 5-500 Tablet) 1 Each Tablet, 1-2 EACH PO Q4HR PRN Prescribed by: SURI GRIFFITH on 08/15/112006 Hyoscyamine Sulfate (Hyoscyamine Sulfate) 0.125 Mg Tab.subl, 0.125 MG SL Q6H PRN for DIARRHEA Prescribed by: MALICK HENDERSON on 10/09/19 014 Ondansetron (Ondansetron Odt) 4 Mg Tab.rapdis, 4-8 MG PO Q6H PRN for NAUSEA/VOMITING Prescribed by: MALICK HENDERSON on 10/09/19 014 Prednisone (Prednisone) 20 Mg Tab, 40 MG PO DAILY Prescribed by: SAGE PARKER on 10/07/21 1717 Promethazine HCl (Promethazine Tablet) 25 Mg Tablet, 25 MG PO Q6H PRN for NAUSEA/VOMITING Prescribed by: MALICK HENDERSON on 10/09/19143 Review of Systems Review of Systems Constitutional: No fever Eyes: Denies Blurred Vision Ears, Nose, Mouth, Throat: no symptoms reported Respiratory: no symptoms reported Cardiovascular: no symptoms reported Gastrointestinal: no symptoms reported Genitourinary: no symptoms reported Musculoskeletal: no symptoms reported Skin: no symptoms reported Psychiatric/Neurological: Headache All Other Systems Reviewed Negative Unless Noted: Yes Past Idlkmtw-Qnwgpk-Zaxcio Hx Patient Social History Tobacco Use?: No Substance use?: No Alcohol Use?: No Pt feels they are or have been: No Immunizations Up To Date Tetanus Booster (TDap): Less than 5yrs PED Vaccines UTD: Yes First/Initial COVID19 Vaccinat: denies Seasonal Allergies Seasonal Allergies: No Past Medical History Surgery/Hospitalization HX: open heart surgery 2014, migraine headaches Surgeries: Yes (DENTAL. "LUMPS OUT OF ARMPIT") Adenoidectomy, Open Heart Surgery, Orthopedic Respiratory: No Cardiac: No Neurological: Yes (SYNCOPE) Reproductive Disorders: No Sexually Transmitted Disease: No Genitourinary: No Gastrointestinal: No Musculoskeletal: No Endocrine: No HEENT: No Cancer: No Psychosocial: No Integumentary: No Blood Disorders: No Family Medical History No Pertinent Family Hx Physical Exam Vital Signs Vital Signs - First Documented 04/06/22 02:01 Temp 36.5 Pulse 71 Resp 16 B/P (MAP) 102/69 (80) Pulse Ox 100 O2 Delivery Room Air Capillary Refill : Less Than 3 Seconds Height, Weight, BMI Height: 5'4" Weight: 98lbs. oz. 44.341140az; 20.00 BMI Method:Stated General Appearance: WD/WN, no apparent distress HEENT: PERRL/EOMI, normal ENT inspection, pharynx normal Neck: non-tender, full range of motion, supple, normal inspection Cardiovascular: regular rate, rhythm, no edema, no murmur Respiratory: chest non-tender, lungs clear, normal breath sounds, no respiratory distress, no accessory muscle use Gastrointestinal: normal bowel sounds, non tender, soft; No distended, No guarding, No rebound Back: normal inspection Extremities: normal range of motion, non-tender, normal inspection, no pedal edema, no calf tenderness, normal capillary refill Psychiatric: alert, oriented x 3 Crainal Nerves: normal hearing, normal speech, PERRL Coordination/Gait: normal gait Motor/Sensory: no motor deficit, no sensory deficit Skin: normal color, warm/dry Lymphatic: no adenopathy Progress/Results/Core Measures Results/Orders My Orders Orders - CARROLL GARCIA MD Prochlorperazine Injection (Compazine In (04/06/22 02:15) Diphenhydramine Injection (Benadryl Inje (04/06/22 02:15) Ketorolac Injection (Toradol Injection) (04/06/22 02:15) Dexamethasone Oral Soln (Ed) (Decadron I (04/06/22 02:08) Acetaminophen Tablet (Tylenol Tablet) (04/06/22 02:15) Vital Signs/I&O 04/06/22 02:01 Temp 36.5 Pulse 71 Resp 16 B/P (MAP) 102/69 (80) Pulse Ox 100 O2 Delivery Room Air Blood Pressure Mean: 80 Progress Progress Note : Progress Note 26-year-old female presenting for her typical migraine headache. ABCs were intact and vitals are stable on presentation. Physical exam reassuring including a normal neuro exam. She has no red flags including no fever, neck stiffness, or neuro findings. She is given IM Compazine, Benadryl, Toradol as well as oral Decadron and Tylenol. She typically likes to go home and sleep after getting the medications which given she is well-appearing I am agreeable to. She was sent home with strict return precautions Departure Impression Primary Impression: Headache Qualified Codes: G44.209 - Tension-type headache, unspecified, not intrac table Disposition: 01 HOME, SELF-CARE Condition: Stable Departure-Patient Inst. Decision time for Depature: 02:20 Referrals: ALE SMITH APRN (PCP/Family) Primary Care Physician Patient Instructions: Headache, Adult ED Add. Discharge Instructions: Continue to follow-up with the neurologist that you have scheduled. You try taking a magnesium supplement to see if that would help with your daily headaches. Otherwise drink plenty of fluids, take ibuprofen, Tylenol, or the Excedrin Migraine as needed. Work/School Note: Work Release Form Date Seen in the Emergency Department: Apr 06, 2022 Return to Work: Apr 07, 2022 Restrictions: No Restrictions CARROLL GARCIA MD Apr 06, 2022 02:13
[2022-04-06] MEDS ORDERED: diphenhydrAMINE 50 MG/ML INJ (BENADRYL) IM ONE (02:15)
[2022-04-06] MEDS ORDERED: PROCHLORPERAZINE 10 MG/2ML INJ (COMPAZINE) IM ONE (02:15)
[2022-04-06] MEDS ORDERED: KETOROLAC 30 MG/ML VIAL IM ONE (02:15)
[2022-04-06] MEDS ORDERED: ACETAMINOPHEN 500 MG TAB (TYLENOL) PO ONE (02:15)
== END 2022-04-06 02:26 | disposition home or self-care (01) ==
LOC: EDUNIT# 01:55 → ER FS 01:59
DX: G43.109 Migraine with aura, not intractable, without status migrainosus (principal); Z28.310 Unvaccinated for COVID-19; Z79.899 Other long term (current) drug therapy
CPT/HCPCS: 99284

== ENCOUNTER 2023-04-06 02:58 | Emergency (ER) | payer SELFPAY ==
[~2023-04-06] VITALS: Ht 162 cm; Wt 66.4 kg
[2023-04-06 03:00] VITALS: BP 108/75
[2023-04-06] MEDS ORDERED: ACETAMINOPHEN 500 MG TAB (TYLENOL) PO ONE (03:15)
[2023-04-06] MEDS ORDERED: KETOROLAC 15 MG/ML VIAL IM ONE (03:15)
[2023-04-06] MEDS ORDERED: PROCHLORPERAZINE 10 MG/2ML INJ (COMPAZINE) IM ONE (03:15)
--- NOTE | 2023-04-06 03:22 | ED Headache ---
General Chief Complaint: Head/Cervical Problems Stated Complaint: MIGRAINE Nursing Triage Note: Patient ambulatory to [facility] via POV with c/o migraine that started approx 1700 yesterday. Patient took benedryl and it did not work. Pain is sharp and on the right side. vomit x2 and nauseous Source: patient Exam Limitations: no limitations History of Present Illness Date Seen by Provider: Apr 06, 2023 Time Seen by Provider: 15:05 Initial Comments 27-year-old female with past medical history of chronic migraines coming in due to what she states is a migraine. She states she has had a migraine headache every day for years. Most recent 1 started last night, slightly worse than usual. LMP was 1 days ago, and typically this does bring on the worst headaches. Denies any vision changes, fever, neck stiffness, weakness, nu mbness, or any other concerns. She took 2 Benadryl prior to coming. She does have a referral to for neurology. Unfortunately she is uninsured, and they canceled her appointment. She is working on getting insurance here soon. Allergies and Home Medications Allergies Coded Allergies: No Known Drug Allergies (Unverified , 08/15/11) Patient Home Medication List Home Medication List Reviewed: Yes Albuterol Sulfate (Proventil Hfa) 6.7 Gm Hfa.aer.ad, 2 PUFF INH Q6H Prescribed by: SAGE PARKER on 10/07/211716 Azithromycin (Zithromax) 250 Mg Tablet, 250 MG PO UD Prescribed by: SAGE PARKER on 10/07/211716 Benzonatate (Tessalon Perles) 100 Mg Capsule, 100 MG PO TID PRN for COUGH Prescribed by: CHLOE PALMER on 10/12/21 153 Hydrocodone Bit/Acetaminophen (Hydrocet 5-500 Capsule) 1 Each Capsule, 1 EACH PO, (Reported) Entered as Reported by: ZANE DICKEY on 08/15/11 193 Hydrocodone Bit/Acetaminophen (Vicodin 5-500 Tablet) 1 Each Tablet, 1-2 EACH PO Q4HR PRN Prescribed by: SURI GRIFFITH on 08/15/112006 Hyoscyamine Sulfate (Hyoscyamine Sulfate) 0.125 Mg Tab.subl, 0.125 MG SL Q6H PRN for DIARRHEA Prescribed by: MALICK HENDERSON on 10/09/19 0144 Ondansetron (Ondansetron Odt) 4 Mg Tab.rapdis, 4-8 MG PO Q6H PRN for ALAN SEA/VOMITING Prescribed by: MALICK HENDERSON on 10/09/19 0144 Prednisone (Prednisone) 20 Mg Tab, 40 MG PO DAILY Prescribed by: SAGE PARKER on 10/07/21 1717 Promethazine HCl (Promethazine Tablet) 25 Mg Tablet, 25 MG PO Q6H PRN for NAUSEA/VOMITING Prescribed by: MALICK HENDERSON on 10/09/19 0144 Review of Systems Review of Systems Constitutional: No fever Eyes: No Symptoms Reported Ears, Nose, Mouth, Throat: no symptoms reported Respiratory: no symptoms reported Cardiovascular: no symptoms reported Gastrointestinal: no symptoms reported Genitourinary: no symptoms reported Musculoskeletal: no symptoms reported Skin: no symptoms reported Psychiatric/Neurological: See HPI Past Nfwbtii-Dlctwf-Mgexkt Hx Patient Social History Tobacco Use?: No Substance use?: No Alcohol Use?: No Immunizations Up To Date Tetanus Booster (TDap): Less than 5yrs PED Vaccines UTD: Yes First/Initial COVID19 Vaccinat: denies Seasonal Allergies Seasonal Allergies: No Past Medical History Surgery/Hospitalization HX: open heart surgery 2014, migraine headaches Surgeries: Yes (DENTAL. "LUMPS OUT OF ARMPIT") Adenoidectomy, Open Heart Surgery, Orthopedic Respiratory: No Cardiac: No Neurological: Yes (SYNCOPE) Reproductive Disorders: No Sexually Transmitted Disease: No Genitourinary: No Gastrointestinal: No Musculoskeletal: No Endocrine: No HEENT: No Cancer: No Psychosocial: No Integumentary: No Blood Disorders: No Family Medical History No Pertinent Family Hx Physical Exam Vital Signs Vital Signs - First Documented 04/06/23 03:00 Temp 35.1 Pulse 71 Resp 15 B/P (MAP) 108/75 (86) Pulse Ox 100 O2 Delivery Room Air Capillary Refill : Less Than 3 Seconds Height, Weight, BMI Height: 5'4" Weight: 98lbs. oz. 44.287605lk; 25.00 BMI Method:Stated General Appearance: WD/WN, no apparent distress HEENT: PERRL/EOMI, normal ENT inspection, pharynx normal Neck: non-tender, full range of motion, supple, normal inspection Cardiovascular: regular rate, rhythm, no edema, no murmur Respiratory: chest non-tender, lungs clear, normal breath sounds, no respiratory distress, no accessory muscle use Gastrointestinal: normal bowel sounds, non tender, soft; No distended, No guarding, No rebound Back: normal inspection, no CVA tenderness Extremities: normal range of motion, non-tender, normal inspection, no pedal edema, no calf tenderness, normal capillary refill Psychiatric: alert, oriented x 3 Crainal Nerves: normal hearing, normal speech, PERRL Coordination/Gait: normal finger to nose, normal gait Motor/Sensory: no motor deficit, no sensory deficit Skin: normal color, warm/dry Progress/Results/Core Measures Results/Orders My Orders Orders - CARROLL GARCIA MD Prochlorperazine Injection (Compazine In (04/06/23 03:15) Ketorolac Injection (Toradol Injection) (04/06/23 03:15) Dexamethasone Oral Soln (Ed) (Decadron I (04/06/23 03:13) Acetaminophen Tablet (Tylenol Tablet) (04/06/23 03:15) Vital Signs/I&O 04/06/23 03:00 Temp 35.1 Pulse 71 Resp 15 B/P (MAP) 108/75 (86) Pulse Ox 100 O2 Delivery Room Air Blood Pressure Mean: 86 Progress Progress Note : Progress Note 27-year-old female with above history coming in due to what she states is a migraine headache. ABCs were intact and vitals were stable on presentation. Physical exam reassuring with a nonfocal neuro exam. This is consistent with all prior migraines that she has had in the past, she is not showing any red flags otherwise. She was given IM injections for her pain here as well as some other p.o. medications to try to help. Overall well-appearing and I believe sta ble for discharge with outpatient follow-up. She was sent home with strict return precautions. Departure Impression Primary Impression: Headache Qualified Codes: G44.209 - Tension-type headache, unspecified, not intractable Disposition: 01 HOME, SELF-CARE Condition: Stable Departure-Patient Inst. Decision time for Depature: 03:35 Referrals: ALE SMITH APRN (PCP/Family) Primary Care Physician Patient Instructions: Headache, Adult ED Add. Discharge Instructions: Please continue to follow back up with your regular doctor and work on getting the referral to a neurologist as you mentioned. There are some medications that can put you on to reduce the number and severity of headaches that you have daily. Work/School Note: Work Release Form Date Seen in the Emergency Department: Apr 06, 2023 Return to Work: Apr 07, 2023 Restrictions: No Restrictions CARROLL GARCIA MD Apr 06, 2023 03:22
== END 2023-04-06 03:32 | disposition home or self-care (01) ==
LOC: EDUNIT# 02:58 → ER FS 02:59
DX: R51.9 Headache, unspecified (principal); Z86.69 Personal history of other diseases of the nervous system and sense organs; Z28.310 Unvaccinated for COVID-19
CPT/HCPCS: 99284

== ENCOUNTER 2023-04-12 21:21 | Emergency (ER) | payer SELFPAY ==
--- NOTE | 2023-04-12 21:35 | ED Headache ---
General Chief Complaint: Head/Cervical Problems Stated Complaint: MIGRAINE "FOR MONTHS" Nursing Triage Note: Pt complaining of a migraine that started around 1400 today History of Present Illness Date Seen by Provider: Apr 12, 2023 Time Seen by Provider: 21:29 Initial Comments 27 yr F with PMH of chronic migraines, is here with c/o right sided migraine he pepeche. Pt has had it for the past 2 days and also today. Pt took Excedrin at home for the headache but it has not been improving. Pt states she drinks large amounts of water. Pt came to the ER tp get the migraine cocktail. Allergies and Home Medications Allergies Coded Allergies: No Known Drug Allergies (Unverified , 08/15/11) Patient Home Medication List Home Medication List Reviewed: Yes Albuterol Sulfate (Proventil Hfa) 6.7 Gm Hfa.aer.ad, 2 PUFF INH Q6H Prescribed by: SAGE PARKER on 10/07/211716 Azithromycin (Zithromax) 250 Mg Tablet, 250 MG PO UD Prescribed by: SAGE PARKER on 10/07/211716 Benzonatate (Tessalon Perles) 100 Mg Capsule, 100 MG PO TID PRN for COUGH Prescribed by: CHLOE PALMER on 10/12/21 153 Hydrocodone Bit/Acetaminophen (Hydrocet 5-500 Capsule) 1 Each Capsule, 1 EACH PO, (Reported) Entered as Reported by: ZANE DICKEY on 08/15/11 193 Hydrocodone Bit/Acetaminophen (Vicodin 5-500 Tablet) 1 Each Tablet, 1-2 EACH PO Q4HR PRN Prescribed by: SURI GRIFFITH on 08/15/112006 Hyoscyamine Sulfate (Hyoscyamine Sulfate) 0.125 Mg Tab.subl, 0.125 MG SL Q6H PRN for DIARRHEA Prescribed by: MALICK HENDERSON on 10/09/19 014 Ondansetron (Ondansetron Odt) 4 Mg Tab.rapdis, 4-8 MG PO Q6H PRN for NAUSEA/VOMI TING Prescribed by: MALICK HENDEROSN on 10/09/19143 Prednisone (Prednisone) 20 Mg Tab, 40 MG PO DAILY Prescribed by: SAGE PARKER on 10/07/211716 Promethazine HCl (Promethazine Tablet) 25 Mg Tablet, 25 MG PO Q6H PRN for NAUSEA/VOMITING Prescribed by: MALICK HENDERSON on 10/09/19 0144 Review of Systems Review of Systems Constitutional: no symptoms reported, see HPI Eyes: No Symptoms Reported Ears, Nose, Mouth, Throat: no symptoms reported Respiratory: no symptoms reported Cardiovascular: no symptoms reported Gastrointestinal: no symptoms reported Musculoskeletal: no symptoms reported Skin: no symptoms reported Psychiatric/Neurological: No Symptoms Reported Past Vgwnowz-Auhetw-Vxncyj Hx Patient Social History Tobacco Use?: No Use of E-Cig and/or Vaping dev: No Substance use?: No Alcohol Use?: No Pt feels they are or have been: No Immunizations Up To Date Tetanus Booster (TDap): Less than 5yrs PED Vaccines UTD: Yes First/Initial COVID19 Vaccinat: denies Seasonal Allergies Seasonal Allergies: No Past Medical History Surgery/Hospitalization HX: open heart surgery 2014, migraine headaches Surgeries: Yes (DENTAL. "LUMPS OUT OF ARMPIT") Adenoidectomy, Open Heart Surgery, Orthopedic Respiratory: No Cardiac: No Neurological: Yes (SYNCOPE) Reproductive Disorders: No Sexually Transmitted Disease: No Genitourinary: No Gastrointestinal: No Musculoskeletal: No Endocrine: No HEENT: No Cancer: No Psychosocial: No Integumentary: No Blood Disorders: No Family Medical History No Pertinent Family Hx Physical Exam Vital Signs Vital Signs - First Documented 04/12/23 21:24 Pulse 83 Resp 16 B/P (MAP) 124/91 (102) Pulse Ox 100 O2 Delivery Room Air Capillary Refill : Less Than 3 Seconds Height, Weight, BMI Height: 5'4" Weight: 98lbs. oz. 44.980206mq; 25.00 BMI Method:Stated General Appearance: WD/WN, no apparent distress HEENT: PERRL/EOMI, normal ENT inspection Neck: non-tender, full range of motion, supple, normal inspection Cardiovascular: regular rate, rhythm Gastrointestinal: non tender, soft Back: normal inspection Extremities: normal range of motion Psychiatric: alert, oriented x 3 Crainal Nerves: normal hearing, normal speech, PERRL Skin: normal color Progress/Results/Core Measures Results/Orders My Orders Orders - SANDRA RUSSELL MD Ketorolac Injection (Toradol Injection) (04/12/23 21:45) Diphenhydramine Injection (Benadryl Inje (04/12/23 21:45) Prochlorperazine Injection (Compazine In (04/12/23 21:45) Acetaminophen Tablet (Tylenol Tablet) (04/12/23 22:45) Medications Given in ED Current Medications Medications Dose Ordered Sig/Ashok Route Start Time Stop Time Status Last Admin Dose Admin Acetaminophen 1,000 mg ONCE ONCE PO 04/12/23 22:45 04/12/23 22:46 DC 04/12/23 22:44 1,000 MG Diphenhydramine HCl 25 mg ONCE ONCE IM 04/12/23 21:45 04/12/23 21:46 DC 04/12/23 21:41 25 MG Ketorolac Tromethamine 30 mg ONCE ONCE IM 04/12/23 21:45 04/12/23 21:46 DC 04/12/23 21:41 30 MG Prochlorperazine Edisylate 10 mg ONCE ONCE IM 04/12/23 21:45 04/12/23 21:46 DC 04/12/23 21:41 10 MG Vital Signs/I&O 04/12/23 04/12/23 21:24 22:46 Pulse 83 83 Resp 16 16 B/P (MAP) 124/91 (102) 124/91 Pulse Ox 100 100 O2 Delivery Room Air Room Air Blood Pressure Mean: 102 Progress Progress Note : Progress Note 1. MIGRAINE HEADACHE: -Toradol IM/Compazine IM/Benadryl IM stat -Tylenol 1000 mg oral given in ER - Patient has neurology appointment coming up by the end of May. Advised to keep appointment. -Advised naproxen capsules 440 mg every 12 hours , with extra strength Tylenol every 4 hours. -Adequate hydration advised -The patient was seen in the ED, and treated appropriately to presentation at a specific point in time. Patient is informed that there is a possibility that disease and illness can evolve and change in acuity rapidly or slowly after patient is discharged from the ER. Precautionary advice given to the patient for immediate return to ER if symptoms worsen or do not resolve, and to seek emergency care sooner rather than later. Pt also advised on the importance of PCP follow up and compliance with management and follow up plan with PCP and/or specialist, as this is part of the management plan. Pt verbally expressed understanding. Departure Impression Primary Impression: Migraine Qualified Codes: G43.919 - Migraine, unspecified, intractable, without sta tus migrainosus Disposition: HOME, SELF-CARE Condition: Improved Departure-Patient Inst. Referrals: ALE SMITH APRN (PCP/Family) Primary Care Physician Patient Instructions: Migraines (DC), Home Headache Remedies Add. Discharge Instructions: - Patient has neurology appointment coming up by the end of May. Advised to keep appointment. -Advised naproxen capsules 440 mg every 12 hours , with extra strength Tylenol every 4 hours. -Adequate hydration advised All discharge instructions reviewed with patient and/or family. Voiced understanding. SANDRA RUSSELL MD Apr 12, 2023 21:35
[2023-04-12] MEDS ORDERED: KETOROLAC 30 MG/ML VIAL IM ONE (21:45)
[2023-04-12] MEDS ORDERED: diphenhydrAMINE 50 MG/ML INJ (BENADRYL) IM ONE (21:45)
[2023-04-12] MEDS ORDERED: PROCHLORPERAZINE 10 MG/2ML INJ (COMPAZINE) IM ONE (21:45)
[2023-04-12] MEDS ORDERED: ACETAMINOPHEN 500 MG TAB (TYLENOL) PO ONE (22:45)
[2023-04-12 22:46] VITALS: BP 124/91
== END 2023-04-12 22:46 | disposition home or self-care (01) ==
LOC: EDUNIT# 21:21 → ER FS 21:23
DX: G43.909 Migraine, unspecified, not intractable, without status migrainosus (principal); Z28.310 Unvaccinated for COVID-19
CPT/HCPCS: 99284